=== PATIENT | female | born 1945 | race Caucasian/White ===

== ENCOUNTER 2021-11-06 13:22 | Outpatient (CLI) | payer MEDICARE, SELFPAY ==
--- NOTE | 2021-11-06 14:48 | ECG_ITS ---
Measurements Intervals [place] Rate: 84 P: 46 HI: 192 QRS: 6 QRSD: 82 T: 45 QT: 345 QTc: 408 Interpretive Statements SINUS RHYTHM NORMAL ECG NO PREVIOUS ECG AVAILABLE FOR COMPARISON Electronically Signed On 11-06-2021 15:57:13 CDT by Frederick Charlton M.D.
[2021-11-06 15:16] LABS: Basophils Percent Auto 0.5 % (0.2-1.2); Eosinophils Absolute Auto 0.2 K/mm3 (0-0.3); Eosinophils Percent Auto 2.9 % (0-4.4); Hematocrit 35.7 % (37.0-47.0); Hemoglobin 11.8 g/dL (12.0-15.0); Immature Granulocyte Absolute 0.03 K/mm3 (0.00-0.031); Immature Granulocyte Percent A 0.4 % (0-0.5); Lymphocytes Absolute Auto 2.07 K/mm3 (0.9-3.2); Lymphocytes Percent Auto 28.1 % (18.3-44.2); Mean Corpuscular HGB Conc 33.1 g/dl (32-36); Mean Corpuscular Hemoglobin 29.7 pg (26-34); Mean Corpuscular Volume 89.9 fl (80-100); Mean Platelet Volume 9.3 fl (7.4-10.4); Monocytes Absolute Auto 0.5 K/mm3 (0.1-0.6); Monocytes Percent Auto 6.5 % (2.6-8.5); Neutrophils Absolute Auto 4.5 K/mm3 (1.3-6.7); Neutrophils Percent Auto 61.6 % (45.5-73.1); Platelet Count Result 200 k/mm3 (150-375); Red Blood Count 3.97 M/mm3 (4.2-5.4); Red Cell Distribution Width 13.1 % (11.5-14.5); White Blood Count 7.4 K/mm3 (4.5-10.0)
[2021-11-06 15:26] LABS: Partial Thromboplastin Time 29.7 SECONDS (22.3-36.8); Prothrombin Time 12.8 Seconds (11.1-14.7)
[2021-11-06 15:29] LABS: Alanine Aminotransferase 16 U/L (4-35); Albumin Level 4.2 g/dL (3.5-5.1); Alkaline Phosphatase 81 U/L (38-126); Anion Gap 6 mmol/L (8-16); Aspartate Amino Transferase 26 U/L (14-36); Bilirubin,Total 0.2 mg/dL (0.2-1.3); Blood Urea Nitrogen 18 mg/dL (7-17); Calcium 10.5 mg/dL (8.4-10.2); Carbon Dioxide 29 mmol/L (22-30); Chloride 105 mmol/L (98-107); Estimated Glomerular Filt Rate > 60; Glucose 126 mg/dL (65-110); Potassium 3.9 mmol/L (3.4-5.0); Sodium 140 mmol/L (137-145)
== END 2021-11-06 13:23 | disposition home or self-care (01) ==
PROVIDERS: PCP Physician Assistant; Visit Provider Urology
DX: N81.10 Cystocele, unspecified (principal); E78.00 Pure hypercholesterolemia, unspecified; Z01.818 Encounter for other preprocedural examination
CPT/HCPCS: 36415; 80053; 85025; 85610; 85730; 86850; 86900; 86901; 87086; 87147; 87181; 87186; 93005

== ENCOUNTER 2021-11-17 00:02 | Day surgery (SDC) | payer MEDICARE, SELFPAY ==
--- NOTE | 2021-11-06 14:30 | PC.NURSE ---
Report to the Outpatient Waiting Room, entrance under the green pavilion located off [facility], at time _0600 on date _11/17/21 . OR Time: __729 . - You and your visitor will be asked a series of questions to screen for COVID 19 for your protection. - A mask is required within the hospital. Preoperative COVID Testing Requirements: No COVID Test needed if: (proof is required; if not received patient will have Rapid Test prior to entry) - Patient has received COVID Vaccine at least 14 days prior to procedure date or - Patient has positive COVID test result within last 90 days of surgery date. COVID Test needed if above criteria is not met If not COVID vaccinated a COVID test must be conducted within 72 hours of surgery and patient is asked to isolate self from time of testing until procedure. You will go to the [facility] for your COVID testing. The [facility] is located at the corner of [address] [facility]. You will only be called if COVID results are positive and your surgeon may reschedule your elective surgery date. Patients may have clear liquids (water, carbonated beverages, clear teas, apple juice) until 3 hours prior to surgery with a maximum of 20 ounces. - No food from midnight until time of surgery - Infants may have breast milk until 4 hours before surgery, formula 6 hours prior to surgery. - Children will be allowed to drink immediately following surgery. If applicable, please bring a bottle or sippy cup to assist with drinking. Juice, water, soda, and popsicles are readily available. For infants on formula, please bring formula the day of surgery. Pacifiers are allowed. Take the following medications with a SIP of water the morning of surgery: ____NONE Medications to discontinue per physician ____ALL VITAMINS AND SUPPLEMENTS 3 DAYS PRE OP. PT STATES PER DR NICHOLS HOLD ASPIRIN AND VITAMIN E 7 DAYS PRE OP Date to take last dose_ALL VITAMINS 4/7/22 ASPIRIN AND VIT E 11/09/21 Please no make-up, nail moroccan, hairspray, perfume, deodorant, or body powder the day of surgery. No jewelry (including any body piercings) or valuables the day of surgery, leave them at home. Please take a shower or bath the night before, or the morning of, surgery with an antibacterial soap. Wear comfortable, loose fitting clothing. Children are encouraged to wear pajamas. - Jewelry must be removed prior to entering the operating room. Rings and piercings that are not removed may be cut off. - The hospital will not accept responsibility for valuables. - Please leave all valuables, including medications, at home the day of surgery. If you are going home after surgery, a licensed road driver must drive you home. - NO public transportation without another adult. - We recommend that an adult stay with you for 24 hours following discharge. - We also recommend that you do not drive, make important decision, drink alcoholic beverages, or take any drugs that were not prescribed by your health care provider for at least 24 hours after your discharge time. For Pediatric surgeries, we recommend two adults accompany the child home (only one inside the building at this time). One visitor will be allowed to accompany the patient into the hospital. Patients visitor will be instructed to remain with patient at all times or leave the building. We will allow the visitor to come back to the postoperative area when patient is ready. Follow any additional instructions given to you from your surgeon. VERBAL AND WRITTEN instructions given to PATIENT and asked if any additional questions and then verbalized understanding. Patient advised to call surgeon office or pre surgery nurse liaison [phone] if any additional questions.
[2021-11-06 14:48] VITALS: BP 142/66; PULSE 86; RESP 18; TEMP 37.2; O2SAT 97; BMI 34.0
--- NOTE | 2021-11-15 11:50 | PM.IMHP ---
H&P: HPI History of Present Illness Date/Time: 11/15/21 11:50 76-year-old with vaginal vault prolapse and stress urinary incontinence by history Chief Complaint: POP/OPORNIMA Review of Systems Review of Systems: All systems reviewed & are unremarkable except as noted in HPI and below PMFSH Social History Social History Smoking status: Never smoker Living arrangements: alone Spiritual care concerns: No Meds Home Medications and Allergies Home Medications Medication Instructions Recorded Confirmed Type aspirin [Adult Low Dose Aspirin] 81 mg PO QPM 11/06/21 11/06/21 History benazepril 10 mg PO QPM 11/06/21 11/06/21 History cholecalciferol (vitamin D3) 25 mcg PO DAILY 11/06/21 11/06/21 History famotidine 20 mg PO QPM 11/06/21 11/06/21 History metformin 500 mg PO BID 11/06/21 11/06/21 History multivitamin,xf-lgrd-lojpiywl 1 tablet PO QPM 11/06/21 11/06/21 History [Complete Multivitamin] oxybutynin chloride 5 mg PO BID 11/06/21 11/06/21 History rosuvastatin 20 mg PO QPM 11/06/21 11/06/21 History vitamin B complex [Super B Complex] 1 tablet PO DAILY 11/06/21 11/06/21 History vitamin E 100 unit PO DAILY 11/06/21 11/06/21 History Allergies Allergy/AdvReac Type Severity Reaction Status Date / Time sulfamethoxazole AdvReac Rash Verified 11/06/21 14:08 [From Bactrim] trimethoprim [From Bactrim] AdvReac Rash Verified 11/06/21 14:08 Exam Narrative: no acute distress alert oriented x3 normal breathing cystocele beyond the introitus with vaginal vault prolapse at +4 urethral mobility Assessment and Plan Assessment and plan (1) Prolapse of vaginal vault after hysterectomy: Code(s): N99.3 - Prolapse of vaginal vault after hysterectomy Status: Acute Assessment and Plan: robotic sacral colpopexy (2) POORNIMA (stress urinary incontinence, female): Code(s): N39.3 - Stress incontinence (female) (male) Status: Acute Assessment and Plan: urethral sling
[2021-11-17] VITALS (17 sets, daily range): BP systolic 112–178; BP diastolic 50–89; PULSE 75–114; RESP 12–18; TEMP 36.2–36.9; O2SAT 91–99
--- NOTE | 2021-11-17 06:48 | WPDANESEPPF ---
Anes - Initial Pre Proc Eval Procedure: Operation Date: 11/17/21 07:30 Proposed Procedures p Robotic Sacrocolpopexy, - Marco Cason MD s Urethral Sling - Marco Cason MD Date/Time: 11/17/21 06:48 Surgeon: Marco Cason MD Pre Op Diagnosis: prolapse of vaginal vault, cystocele, urge incont Patient Data Age: 76 Gender: F Height: 1.6 m Weight: 87.1 kg Last Vital Signs Temp 37.2 C 11/06/21 14:48 Pulse 86 11/06/21 14:48 Resp 18 11/06/21 14:48 BP 142/66 H 11/06/21 14:48 Pulse Ox 97 11/06/21 14:48 Allergies Allergy/AdvReac Type Severity Reaction Status Date / Time sulfamethoxazole AdvReac Rash Verified 11/06/21 14:08 [From Bactrim] trimethoprim [From Bactrim] AdvReac Rash Verified 11/06/21 14:08 Home Medications Medication Instructions Recorded Confirmed Type aspirin [Adult Low Dose Aspirin] 81 mg PO QPM 11/06/21 11/06/21 History benazepril 10 mg PO QPM 11/06/21 11/06/21 History cholecalciferol (vitamin D3) 25 mcg PO DAILY 11/06/21 11/06/21 History famotidine 20 mg PO QPM 11/06/21 11/06/21 History metformin 500 mg PO BID 11/06/21 11/06/21 History multivitamin,ys-ogvv-fseoadaj 1 tablet PO QPM 11/06/21 11/06/21 History [Complete Multivitamin] oxybutynin chloride 5 mg PO BID 11/06/21 11/06/21 History rosuvastatin 20 mg PO QPM 11/06/21 11/06/21 History vitamin B complex [Super B Complex] 1 tablet PO DAILY 11/06/21 11/06/21 History vitamin E 100 unit PO DAILY 11/06/21 11/06/21 History Patient hx anesthesia problems: none Family hx anesthesia problems: none Results Review: All pre-operative results and documents have been reviewed as part of the pre-operative evaluation. [facility] Past Medical History Medical History (Updated 11/17/21 @ 06:53 by Shun Hoskins MD) Diabetes HTN (hypertension) Hyperlipidemia Obesity RICHARD treated with BiPAP Surgical History Surgical History (Updated 11/17/21 @ 06:53 by Shun Hoskins MD) H/O: hysterectomy History of total knee arthroplasty Social History Social History Smoking status: Never smoker Living arrangements: alone Spiritual care concerns: No Anes - Eval Final PreProcedure Day of Procedure 11/17/21 06:48 Patient weight: obese Heart: regular rate and rhythm Lungs: clear to auscultation Airway: Mallampati scale class II Neurological: alert and oriented Last oral intake: >/= 8 hours ASA classification: III Emergent: no Anesthetic plan: proceed Anesthesia type and monitoring: general ETT and standard monitoring Results Review: All pre-operative results and documents have been reviewed as part of the pre-operative evaluation. Informed Consent: The patient's anesthetic plan and its attendant risks and benefits were discussed with the patient/family/POA. Questions were solicited and answers provided to the satisfaction of the patient/family/POA.
--- NOTE | 2021-11-17 07:14 | WPDHPUPDATE1 ---
History and Physical Update Update Date/Time: 11/17/21 07:14 History and Physical has been reviewed, including an updated exam of the patient. There are NO changes in the patient's condition. Risks, benefits, and alternatives have been discussed and questions answered. Patient agrees to proceed with procedure.
[2021-11-17] MEDS: LACTATED RINGERS 1,000 ML 30 ML IV CONT ×2 (07:15→10:48)
[2021-11-17] MEDS: ceFAZolin 2 GM/D5W 50 ML 2 GM/50 ML BAG IVPB (07:26)
[2021-11-17 07:29] LABS: Glucose Point of Care 135 mg/dl (65-105)
--- NOTE | 2021-11-17 10:41 | W.PM.PROC2 ---
Procedure Note - Detailed Date of Procedure 11/17/21 Pre-op Diagnosis prolapse of vaginal vault, Stress incontinence, female perineal laxity Post-op Diagnosis Same Procedure Performed Robotic assisted laparoscopic sacral colpopexy Urethral sling perineorrhaphy Cystoscopy Surgeon Marco Cason MD Anesthesia General Indications This is a woman with post hysterectomy vaginal vault prolapse as well as stress urinary incontinence. She desires surgical correction. She understands risks of bleeding, infection, diskitis, damage to surrounding organs, damage to the bowel or urinary tract, recurrence of prolapse, dyspareunia, vaginal mesh exposure, urinary tract mesh exposure, obstructive voiding requiring secondary procedure, hip and leg pain, and other perioperative intraoperative and postoperative complications. She is to proceed Findings See below Description of Procedure She was correctly identified. Informed consent obtained. She is brought to the operating room. She was given general anesthesia. She was placed in the lithotomy position. She was given appropriate perioperative antibiotics. She was prepped and draped in a sterile fashion. A time-out performed. I anesthetized the skin 3 fingerbreadths cephalad to the umbilicus. I incised the skin. I located the fascia. I grasped the fascia with Luna clamps. I incised the fascia sharply and a Stubbs type technique. I placed Vicryl sutures for later fascial closure. I placed a midline trocar. Under direct vision placed 2 additional trocars in the right upper quadrant and 2 additional trocars in the left upper quadrant. She was placed in steep Trendelenburg. The robot was docked. I sat at the console. she had significant small bowel and colon in the deep pelvis. I placed packing sponges into the abdomen to retract the bowels. These removed the surgery. With the Sizer in the vagina and created a plane on the anterior and posterior vaginal wall for several cm taking great care not to injure the vagina, bladder, or rectum. I introduced the mesh into the vagina. I sewed the anterior leaflet of mesh on the anterior vaginal wall and posterior leaf of the mesh on the posterior vaginal wall with several sutures of 2 0 Dewitt-Dionicio taking great care not to go through and through. I then opened up the peritoneum over the sacral promontory. I carried this incision into the cul-de-sac. I freed up the edges for later retroperitonealization of the mesh. I located the anterior longitudinal ligament of the sacrum. I cleaned off any fatty tissues. I then tensioned my mesh appropriately. I did a vaginal exam to ensure prolapse reduction without undue tension. I then sewed the proximal leaflet of mesh onto the ligament with several sutures of 2 0 Dewitt-Dionicio. I then used a 2 0 Monocryl to meticulously retroperitonealized all mesh. I allowed the colon to go back into its normal anatomic location. There is no sign of impingement. He had an was then exited. Fascial sutures were closed. The wounds were all irrigated and closed with 4 O Monocryl and skin glue. She was then repositioned and prepped for urethral sling. I marked out the inner thigh incisions. I anesthetized the skin and made those incisions. I then anesthetized the anterior vaginal wall over the mid urethra. I made a 1 cm incision. I dissected out laterally taking great care not to injure the urethra vaginal wall. I passed the helical trocars. I did this 1st on the left than on the right from the thigh incision towards the vaginal incision. Sling was connected to the trocars and brought out through the thigh incision. I tensioned the sling appropriately. I cut and removed the plastic sleeves. I then performed cystoscopy. The bladder showed no evidence of surgical artifact or tumor. Patency was documented of both ureters by placing guidewires up the ureters. These went easily.. I cut the excess sling material. I closed incisions
--- NOTE | 2021-11-17 11:20 | SUR.PHASEI ---
1050; PT HAS BILAT EYELID AND SCLERAL EDEMA. HOB ELEVATED AT 30 DEGREES
[2021-11-17 11:21] LABS: Glucose Point of Care 219 mg/dl (65-105)
--- NOTE | 2021-11-17 11:23 | SUR.PHASEI ---
DR PERES NOTIFIED OF BLOOD SUGAR 219. PT TO TAKE DAILY MEDS WHEN SHE GETS HOME TODAY
--- NOTE | 2021-11-17 11:39 | SUR.PHASEI ---
1135; SAO2 DROPS TO 86% ON ROOM AIR. PT VERY SLEEPY. AROUSES TO VERBAL STIMULI. O2 2L NC APPLIED.
--- NOTE | 2021-11-17 12:36 | SUR.PHASEI ---
1225; DR NICHOLS IN PACU. PT REMAINS VERY SLEEPY. REMAINS ON O2 2L NC. PT MAY BE ADMITTED TODAY
--- NOTE | 2021-11-17 13:06 | SUR.PHASEI ---
1300; SPOKE TO DAUGHTER, PT REMAINS SLEEPY AND ON OXYGEN.
--- NOTE | 2021-11-17 13:08 | SUR.PHASEI ---
1300; SAO2 RANGES FROM 89-93%. INCREASED O2 TO 3L NC
--- NOTE | 2021-11-17 13:45 | PC.NURSE ---
This patient, Nicole Harris, was received from PACU on 11/17/21 at 1345. Patient/family oriented to unit policies and routines
[2021-11-17] MEDS: LACTATED RINGERS 1,000 ML 125 ML IV CONT (14:32)
[2021-11-17] MEDS: metroNIDAZOLE 500 MG/ISO 100ML 500 MG/100 ML BAG 100 MG IVPB ×2 (14:32→22:35)
[2021-11-17] MEDS: KETOROLAC 15 MG/ML VIAL (*BKC) IV PUSH (14:33)
[2021-11-17 17:23] LABS: Glucose Point of Care 162 mg/dl (65-105)
[2021-11-17] MEDS: metFORMIN HCL 500 MG TABLET PO (17:26)
[2021-11-17] MEDS: HYDROcodone/acetaminophen (*CRX) 5-325 MG TABLET 1 TAB PO (17:26)
[2021-11-17] MEDS: THERAPEUTIC MULTIVITAMINS/MINERALS TAB (*BKC) 1 TABLET PO (18:44)
[2021-11-17] MEDS: lisinopriL 10 MG TABLET PO (18:44)
[2021-11-17] MEDS: FAMOTIDINE 20 MG TABLET PO (18:44)
[2021-11-17] MEDS: OXYBUTYNIN CHLORIDE 5 MG TABLET PO (18:45)
[2021-11-17] MEDS: ROSUVASTATIN 10 MG TABLET 20 MG PO (18:45)
[2021-11-18 00:37] VITALS: PULSE 79; O2SAT 96
[2021-11-18 03:10] VITALS: BP 104/43; PULSE 92; RESP 16; TEMP 37.3
[2021-11-18 06:02] LABS: Platelet Count Result 215 k/mm3 (150-375)
[2021-11-18] MEDS: metroNIDAZOLE 500 MG/ISO 100ML 500 MG/100 ML BAG 100 MG IVPB (06:43)
[2021-11-18 07:12] LABS: Glucose Point of Care 131 mg/dl (65-105)
[2021-11-18] MEDS: CHOLECALCIFEROL 1,000 UNITS TABLET 1000 UNITS PO (07:53)
[2021-11-18] MEDS: VITAMIN B COMPLEX CAPSULE 1 CAP PO (07:53)
[2021-11-18] MEDS: VITAMIN E 100 UNIT CAPSULE PO (07:53)
[2021-11-18] MEDS: DOCUSATE SODIUM 100 MG CAPSULE PO (07:53)
[2021-11-18] MEDS: metFORMIN HCL 500 MG TABLET PO (07:53)
[2021-11-18] MEDS: ENOXAPARIN 30 MG/0.3 ML SYRINGE SUB-Q (07:54)
[2021-11-18] MEDS: OXYBUTYNIN CHLORIDE 5 MG TABLET PO (07:54)
[2021-11-18 08:25] VITALS: BP 102/44; PULSE 82; RESP 16; TEMP 36.8; O2SAT 99
--- NOTE | 2021-11-18 10:12 | WPDANESPN ---
Anes - Prog Note Post-Op Date/Time: 11/18/21 10:12 Cardiovascular status: normal Respiratory status: normal Airway patency: baseline Mental status: baseline Post-Op hydration status: normal Vital Signs: Last Vital Signs Temp 36.8 C 11/18/21 08:25 Pulse 82 11/18/21 08:25 Resp 16 11/18/21 08:25 BP 102/44 L 11/18/21 08:25 Pulse Ox 99 11/18/21 08:25 Pain Score (VAS): 2 I/O: Intake & Output 11/17/21 11/18/21 11/18/21 23:59 07:59 15:59 Intake Total 836 605 6422 Output Total 650 400 100 Balance -100 -50 1450 Laboratory Tests 11/18/21 03:17 11/17/21 11/17/21 11/18/21 11:17 17:18 03:17 Plt Count 215 MPV 10.0 POC Capillary Glucose 219 H 162 H 11/18/21 07:10 Plt Count MPV POC Capillary Glucose 131 H Post-procedural complaints: none Patient Feedback: Patient satisfied with anesthetic care.
--- NOTE | 2021-11-18 10:42 | PC.NURSE ---
Pt did not want to put on abdominal binder at this time; described how to put it on, offered to assist pt if she desired. Sent binder home with pt.
--- NOTE | 2021-11-18 10:54 | WPDUROPN2 ---
Progress Note: A&P Assessment and Plan (1) POORNIMA (stress urinary incontinence, female): Code(s): N39.3 - Stress incontinence (female) (male) Status: Acute (2) Prolapse of vaginal vault after hysterectomy: Code(s): N99.3 - Prolapse of vaginal vault after hysterectomy Status: Acute Assessment and Plan: Ok to discharge home. Subjective Subjective Date/Time Seen: 11/18/21 10:54 POD #1 Robotic Assisted Laparoscopic Sacral Colpopexy, urethral sling, perineorrhaphy, cystoscopy. Patient is doing remarkably well, managing incisional pain, she is also urinating well s/p catheter removal. She is tolerating her diet and activity as well. Review of Systems Cardiovascular: Cardiovascular: Denies chest pain Respiratory: Respiratory: Reports no additional respiratory complaints Gastrointestinal: Gastrointestinal: Reports abdominal pain (at incisional sites only), Denies nausea and Denies vomiting Genitourinary: Genitourinary: Denies hematuria, Denies dysuria, Denies pelvic pain, Denies flank pain, Denies urinary urgency and Reports vaginal discharge (scant bleeding) Exam Resp: Effort & Inspection: normal respiratory effort Cardio: Rate: regular rate GI: GI Palp: Yes Soft to palpation and Yes Tenderness to palpation present (GI) (at incisions, all are well approximated, no drainage or edema, tender ) : General: Yes no CVA tenderness Extrem: General: no edema Objective Data Vital Signs Vital Signs: Vital Signs - 24 hr 11/17/21 11:00 11/17/21 11:15 11/17/21 11:30 Temperature Pulse Rate 92 85 84 Respiratory Rate 16 14 12 Blood Pressure 159/77 H 144/70 H 143/64 H Pulse Oximetry 98 99 97 11/17/21 11:45 11/17/21 12:00 11/17/21 12:15 Temperature Pulse Rate 82 75 80 Respiratory Rate 14 14 14 Blood Pressure 135/65 133/71 123/54 L Pulse Oximetry 93 96 93 11/17/21 12:30 11/17/21 12:45 11/17/21 13:00 Temperature 97.4 F L Pulse Rate 75 80 83 Respiratory Rate 14 14 12 Blood Pressure 121/63 119/51 L 112/50 L Pulse Oximetry 92 91 93 11/17/21 13:20 11/17/21 13:30 11/17/21 14:00 Temperature 97.6 F Pulse Rate 85 87 78 Respiratory Rate 12 14 16 Blood Pressure 122/55 L 125/65 136/78 Pulse Oximetry 93 94 97 11/17/21 17:30 11/17/21 18:45 11/17/21 21:33 Temperature 97.3 F L Pulse Rate 78 90 82 Respiratory Rate 18 16 Blood Pressure 122/53 L Pulse Oximetry 97 97 11/18/21 00:37 11/18/21 03:10 11/18/21 08:25 Temperature 99.1 F 98.2 F Pulse Rate 79 92 82 Respiratory Rate 16 16 Blood Pressure 104/43 L 102/44 L Pulse Oximetry 96 99 Intake/Output Intake/Output: Intake & Output 11/15/21 11/16/21 11/17/21 11/18/21 23:59 23:59 23:59 23:59 Intake Total 1100 1900 Output Total 1050 500 Balance 50 1400 Meds/Results Medications: Active Medications Generic Name Dose Route Start Last Admin Trade Name Freq PRN Reason Stop Dose Admin Acetaminophen 650 mg 11/17/21 13:42 Acetaminophen 325 Mg Tablet PO Q4H PRN Mild Pain (1-3) or Fever Hydrocodone Bitart/Acetaminophen 1 tab 11/17/21 13:42 11/17/21 17:26 Hydrocodone/Acetaminophen (*Crx) 5-325 Mg Tablet PO 1 tab Q4H PRN Administration Pain Rated 4-5 Benzocaine 1 lozenge 11/17/21 21:32 Benzocaine/Menthol (*Bkc) 18 Ea Lozenge PO PRN PRN Sore Throat Cephalexin HCl 500 mg 11/18/21 13:00 Cephalexin 500 Mg Capsule PO QID MARYLIN Dextrose 12.5 gm 11/17/21 13:18 Dextrose 50% 25 Gm/50 Ml Syringe IV PUSH PRN PRN Hypoglycemia Protocol Diphenhydramine HCl 25 mg 11/17/21 13:42 Diphenhydramine Hcl Inj 50 Mg/Ml Vial IV PUSH Q6H PRN Itching Docusate Sodium 100 mg 11/18/21 09:00 11/18/21 07:53 Docusate Sodium 100 Mg Capsule PO 100 mg DAILY MARYLIN Administration Enoxaparin Sodium 30 mg 11/18/21 09:00 11/18/21 07:54 Enoxaparin 30 Mg/0.3 Ml Syringe SUB-Q 30 mg DAILY MARYLIN Administration Famotidine 20 m
== END 2021-11-18 11:31 | disposition home or self-care (01) ==
LOC: ANHSURGERY 09:09 → ANHOB2 13:44
PROVIDERS: PCP Physician Assistant; Visit Provider Urology
PROC: (CPT 57425; principal; 2021-11-17 07:30)
PROC: (CPT 57288; 2021-11-17 07:30)
DX: N99.3 Prolapse of vaginal vault after hysterectomy (principal); N39.3 Stress incontinence (female) (male); E11.9 Type 2 diabetes mellitus without complications; I10 Essential (primary) hypertension; E78.5 Hyperlipidemia, unspecified; G47.33 Obstructive sleep apnea (adult) (pediatric); E66.9 Obesity, unspecified; Z68.33 Body mass index [BMI] 33.0-33.9, adult; Z79.84 Long term (current) use of oral hypoglycemic drugs; Z79.82 Long term (current) use of aspirin
CPT/HCPCS: 57288; 57425; 36415; 80053; 82948; 85025; 85049; 85610; 85730; 86850; 86900; 86901; 87086; 87147; 87181; 87186; 93005; 99199; A9270; C1771; C1781; C9290; J0690; J1100; J1170; J1650; J1885; J2250; J2405; J2704; J2710; J3010; J7030; J7120